=== PATIENT | male | born 1960 | race Two or more races ===

== ENCOUNTER 2016-04-02 07:30 | Inpatient (IN) | payer OTHER ==
[2016-04-01 09:16] VITALS: BMI 27.8
[~2016-04-02] VITALS: Ht 167.6 cm; Wt 80.0 kg
[~2016-04-02 07:30] MED LIST: BACITRACIN 50000 UNITS INJ ONE; CEFAZOLIN 2 GM/50 ML (PMX) 50 ML IVPB ONE
[2016-05-01 10:13] VITALS: BMI 27.6
[2016-05-02] VITALS (34 sets, daily range): BP systolic 72–126; BP diastolic 40–73; PULSE 61–83; RESP 13–22; Ht 167.6 cm; Wt 80.0 kg
[2016-05-02] MEDS ORDERED: CEFAZOLIN 1 GM INJ ONE (07:00)
[2016-05-02 08:15] LABS: BASOPHILS % 0.6 % (0.0-2.0); EOSINOPHILS # 0.2 10^3/ul (0.0-0.5); EOSINOPHILS % 3.4 % (0.0-7.0); HEMATOCRIT 43.9 % (42.0-52.0); HEMOGLOBIN 15.1 g/dl (14.0-18.0); LYMPHOCYTES # 2.5 10^3/ul (0.8-2.9); LYMPHOCYTES % 34.1 % (15.0-51.0); MEAN CORPUSCULAR HEMOGLOBIN 31.4 pg (29.0-33.0); MEAN CORPUSCULAR HGB CONC 34.3 g/dl (32.0-37.0); MEAN CORPUSCULAR VOLUME 91.5 fl (82.0-101.0); MEAN PLATELET VOLUME 8.1 fl (7.4-10.4); MONOCYTE # 0.5 10^3/ul (0.3-0.9); MONOCYTES % 6.3 % (0.0-11.0); NEUTROPHILS % 55.6 % (39.0-77.0); PLATELET COUNT 179 10^3/UL (140-440); RED CELL DISTRIBUTION WIDTH 12.9 % (11.5-14.5); UNCORRECTED WBC 7.2 10^3/ul (4.8-10.8); WHITE BLOOD COUNT 7.2 10^3/ul (4.8-10.8)
[2016-05-02 08:19] LABS: CONDITION 1
[2016-05-02] MEDS ORDERED: CEFAZOLIN 2 GM/50 ML (PMX) 50 ML IVPB SCH (08:30)
[2016-05-02 08:33] LABS: ALBUMIN 4.1 g/dl (3.3-4.9)
[2016-05-02 08:35] LABS: POTASSIUM 4.2 mmol/L (3.5-5.1)
[2016-05-02 08:36] LABS: BILIRUBIN,INDIRECT 0.6 mg/dl (0-1.1); BILIRUBIN,TOTAL 0.6 mg/dl (0.2-1.3); CREATININE 0.59 mg/dl (0.61-1.24); TOTAL PROTEIN 8.2 g/dl (6.1-8.1)
[2016-05-02 08:37] LABS: CALCIUM 8.8 mg/dl (8.4-10.2); INR 1.06; PROTIME 13.8 Sec (12.2-14.2); PT RATIO 1.1
[2016-05-02 08:38] LABS: PARTIAL THROMBOPLASTIN TIME 28.5 Sec (25.0-35.0)
[2016-05-02] MEDS ORDERED: NALOXONE (0.4 MG/ML) INJ IV PRN (09:30)
[2016-05-02] MEDS ORDERED: MAGNESIUM HYDROXIDE 30ML CUP PO PRN (09:30)
[2016-05-02] MEDS ORDERED: ONDANSETRON 4 MG INJ IV PRN ×2 (09:30→15:30)
[2016-05-02] MEDS ORDERED: ACETAMINOPHEN 325 MG TAB PO PRN (09:30)
[2016-05-02] MEDS ORDERED: CYCLOBENZAPRINE 10 MG TAB PO PRN (09:30)
[2016-05-02] MEDS ORDERED: HYDROmorphONE 0.2 MG/ML PCA IV SCH (09:30)
[2016-05-02] MEDS ORDERED: CEPASTAT LOZENGE MT PRN (09:30)
[2016-05-02] MEDS ORDERED: LORAZEPAM 2 MG INJ IV PRN (09:30)
[2016-05-02] MEDS ORDERED: HYDROmorphONE 1 MG/ML SYG IV PRN (09:30)
[2016-05-02] MEDS ORDERED: HYDROCODONE/APAP (5/325) TAB PO PRN (09:30)
[2016-05-02] MEDS ORDERED: DIPHENHYDRAMINE 50 MG INJ IV PRN (09:30)
[2016-05-02] MEDS ORDERED: PROCHLORPERAZINE 10 MG INJ IV PRN (09:30)
[2016-05-02] MEDS ORDERED: ROCURONIUM 50 MG INJ ONE ×4 (09:55→12:10)
[2016-05-02] MEDS ORDERED: LIDOCAINE 2% (SDV) 5 ML INJ ONE (09:55)
[2016-05-02] MEDS ORDERED: PROPOFOL 100 ML ONE (09:55)
[2016-05-02] MEDS ORDERED: FENTAnyl 50 MCG/ML VIAL ONE (09:57)
[2016-05-02] MEDS ORDERED: BUPIVACAINE 0.25%/EPI (SDV) 30 ML INJ ONE (09:57)
[2016-05-02] MEDS ORDERED: CA CHLORIDE 10% 10 ML SYRINGE ONE (09:57)
[2016-05-02] MEDS ORDERED: BUPIVACAINE 0.25% (MPF) 30 ML INJ ONE (09:57)
[2016-05-02] MEDS ORDERED: THROMBIN 5000 UNIT VIAL ONE ×3 (09:58→13:21)
[2016-05-02] MEDS ORDERED: HEPARIN 1000 UNITS/ML 10 ML INJ ONE (10:11)
[2016-05-02] MEDS ORDERED: GLYCOPYRROLATE 1 MG INJ ONE (10:28)
[2016-05-02] MEDS ORDERED: IOHEXOL 300MG/ML 30 ML BTL ONE (10:37)
[2016-05-02] MEDS ORDERED: HYDROmorphONE 2 MG/ML SYG ONE (10:52)
[2016-05-02] MEDS ORDERED: POLYMYXIN/BACITRACIN 1L IRRIG IRR ONE (11:22)
[2016-05-02] MEDS ORDERED: EPHEDrine SULFATE 50 MG/5 ML SYG ONE ×2 (11:39→15:15)
[2016-05-02] MEDS ORDERED: DEXAMETHASONE 4 MG/ML 1 ML INJ ONE (11:40)
[2016-05-02] MEDS ORDERED: IOHEXOL 300MG/ML 30 ML BTL INJ ONE (12:55)
[2016-05-02] MEDS ORDERED: ONDANSETRON 4 MG INJ ONE (14:29)
[2016-05-02] MEDS ORDERED: LABETALOL HCL 20MG INJ IV PRN (15:30)
[2016-05-02] MEDS ORDERED: EPHEDrine SULFATE 50 MG/5 ML SYG IV PRN (15:30)
[2016-05-02] MEDS ORDERED: FENTAnyl 50 MCG/ML VIAL IV PRN ×3 (15:30)
[2016-05-02] MEDS ORDERED: HYDROmorphONE (0.2 MG/ML) 10ML SYG IV PRN ×3 (15:30)
[2016-05-02] MEDS ORDERED: MEPERIDINE 25 MG INJ IV PRN (15:30)
--- NOTE | 2016-05-02 15:33 | RADRPT ---
PROCEDURE: Lumbar spine x-ray and fluoroscopy CLINICAL INDICATION: Lumbar spine surgical procedure TECHNIQUE: 8 intraoperative x-ray views of the lumbar spine are available for review. Site of ser vice: Inpatient COMPARISON: None available FINDINGS: 8 intraoperative images and 37.6 seconds of fluoroscopy used intraoperatively for L5-S1 anterior fix ation with a radiolucent disk spacer and posterior fixation with pedicle screws and connecting rods IMPRESSION: 8 intraoperative images and 37.6 seconds of fluoroscopy used for a L5-S1 fusion .Abebe Fan MD, Date Time Electronically viewed and signed by .Abebe Fan MD, on 05/02/2016 15:33 .B/
[2016-05-02] MEDS: CEFAZOLIN 1 GM/50 ML (PMX) 50 ML IVPB SCH (15:54)
--- NOTE | 2016-05-02 16:08 | OPR ---
DATE OF OPERATION: 05/02/2016 PREOPERATIVE DIAGNOSIS: L5-S1 degenerative disk disease, foraminal stenosis and anterolisthesis, grade I. POSTOPERATIVE DIAGNOSIS: L5-S1 degenerative disk disease, foraminal stenosis and anterolisthesis, grade I. PROCEDURE: 1. L5-S1 diskectomy. 2. L5-S1 central decompressive laminectomy. 3. Facetectomies and foraminotomies bilaterally for decompression of exiting and traversing nerve roots at L5 and S1 respectively. 4. Diskectomy done above and beyond the need for fusion for the purpose of decompression. 5. Placement of pedicle screws at L5 and S1 bilaterally measuring 5.5 x 35 mm. 6. Interbody cage measuring 60 mm placed within the interbody space with bone graft within this cage and anterior to the cage. 7. Posterolateral bone grafting in the posterolateral gutters after high-speed bur decortication. 8. 40 mm prelordotic rods placed into the screws. 9. Right L5 nerve root demonstrated injury during the procedure, nerve root exposed and difficult to assess the amount of nerve injury. Intraoperative neural monitoring including sensorimotor did demonstrate deficit compared to preoperative. 10. Use of intraoperative microscope for microdissection. 11. Use of intraoperative neural monitoring for motor and sensory to the bilateral upper and lower extremities during the entire surgical procedure. 12. Use of intraoperative microscope. 13. Use of intraoperative fluoroscopy for localization and placement of instrumentation as well as an epidurogram. 14. Epidural catheter placed for epidural pain medication including 4 mL of 0.25% Marcaine and 100 mcg of fentanyl and then the catheter removed. 15. Subcutaneous injection of Marcaine for postop analgesia. 16. Cosmetic wound closure, four inch incision. SURGEON: Luis Ocasio MD PHP SOFTWARE ENGINEER: LASHAY Jose. FINDINGS: At the start of surgical procedure it is noted that nerve root signals improved except for the L5 nerve root on the right side which demonstrated motor and sensory deficit compared to preoperative baseline. BLOOD ADMINISTRATION: None. IMPLANTS: Orthofix implants with interbody cage measuring 60 mm and four pedicle screws measuring 5.5 x 35 mm, OsteoSponge Fibergraft. ESTIMATED BLOOD LOSS: Approximately 150 mL. DRAINS: Hemovac medium and Lewis. SPECIMENS: L5-S1 disk material. COMPLICATIONS: Start at surgical procedure, it is noted that the right L5 nerve root had some deficit compared to conclusion. There appears to have been an intraoperative nerve root injury at the L5 on the right side, demonstrating some exposed nerve roots, difficult to assess the amount of motor deficit and sensory deficit until patient returns from the surgical procedure and tested postoperatively. TYPE OF ANESTHESIA: General. ANESTHESIOLOGIST: Dr. Duncan. BRIEF PREOPERATIVE HISTORY: The patient is a 55-year-old male who presented with significant symptoms of lower extremity neuroclaudication with grade I anterolisthesis at L5-S1. Failed conservative management and indicated for surgery as stated above. The patient understood the risks, benefits, and alternatives of surgical procedure and consented to surgery as stated above. This included the possibility of infection, nerve root injury, CSF leak, blood loss in addition to failure of fusion, failure of instrumentation and the need for reoperation. Patient understood the risks, benefits, and alternatives discussed with patient as well as son at bedside who helped translation. OPERATION IN DETAIL: The patient was brought to the operating room, placed under anesthesia by Dr. Duncan and given 2 grams of Ancef. The patient was then turned prone onto the Daquan frame and all bony prominences appropriately padded. Lumbar spine prepped and draped in usual sterile fashion. Two spinal needles placed for a lateral localizing film verifying the proper position of the incision line over the L5-S1 level. Patient started with the central decompressive laminectomy, removing the spinous processes of L5 to expose the thecal sac and bilateral L5 and S1 exiting and traversing nerve roots with complete facetectomies and foraminotomies bilaterally. At this portion of the procedure, it was noted that the L5 exiting nerve root on the right side demonstrated findings of exposed nerve roots. This demonstrated possibility of an injury due to possible adhesions during the surgical procedure and decompression. Assess after waking. We continue with the procedure as planned and tested nerve roots during the entire surgical procedure with intraoperative neuromonitoring. At this time, after decompression, we entered into the disk space for complete diskectomy above and beyond the need for fusion for the purpose of decompression , measured a 60 mm interbody cage and filled it with Fibergraft and placed Fibergraft as well as bone OsteoSponge into the disk space and placed the interbody cage. Next, our screws were placed to the bilateral pedicles at 35 mm x 5.5 mm and verified on AP and lateral projection and proper placement. Again, it was evaluated with neuromonitoring noting that there was deficit of the L5 nerve root on the right side in both sensory and motor compared to baseline. At the conclusion of the procedure placed Duragen and DuraSeal to seal off the L5 nerve root. Copiously irrigated and placed the 40 mm prelordotic rods across the pedicles and injected our epidural pain medication with 4 mL of 0.25 % Marcaine and 100 mcg of fentanyl and removed the catheter. The medium Hemovac was placed after copious irrigation. Bilateral posterolateral bone graft was placed in the posterolateral gutters after high- speed bur decortication. Cosmetic wound closure of the 4 inch incision. Once concluded the procedure all instrument, sponge counts and needles were correct. The patient will be taken to recovery room and taken to the room when stable. The patient will be admitted for postop pain control, physical therapy and antibiotics. All instrument, sponge counts and needles were correct at conclusion of the procedure. Despite the noted L5 nerve root injury on the right side, post-op patient examination demonstrates full motor/sensory bilaterally when comparing the L4, L5 and S1 nerve root motor and sensory dermatome distribution. EHL, ant. tib, gastrocsoleus, knee flex/ext, hip flexion all full 5/5 motor without and deficit. No radicular pain and reflexes symmetric. IMPLANTS: As stated above. Dictated By: LUIS WHIPPLE/DREW Conf#: [id number] DID#: [id number] MTDD
--- NOTE | 2016-05-02 17:46 | CONS ---
DATE OF ADMISSION: 05/02/2016 DATE OF CONSULTATION: 05/02/2016 REQUESTING PHYSICIAN: Luis Pascal MD REASON FOR CONSULTATION: Medical management. HISTORY OF PRESENT ILLNESS: This is a 55-year-old gentleman with no significant past medical histor y except significant symptoms in the lower extremities, neural claudication with grade I anterolisth esis with past medical history of low back pain and difficulty ambulating, who was seen and evaluate d by neurosurgeon as outpatient and was found to have symptoms of lower extremity neural claudicatio n with grade I anterolisthesis at L5-S1. The patient failed conservative management and was indicat ed for surgery. After discussing the mode of the treatment and discussing the risks and the benefit s of surgery, patient decided to proceed with the surgical intervention and signed the consent. The patient was admitted to [facility] and had L5-S1 diskectomy, central decompressiv e laminectomy with placement of pedicle screws at L5 and S1 bilaterally measuring 5.5 x 35 mm. The patient was initially extubated and was transferred to recovery room and medical team was consulted. At this time, patient is awake, alert, oriented. He is able to answer all my questions. The donnie ent denies any headache, dizziness, lightheadedness. No chest pain, palpitations, edema, orthopnea. No change in visual acuity, diplopia, photophobia. No numbness or tingling in his extremities or any other discomfort. PAST MEDICAL HISTORY: Low back pain. MEDICATIONS: No active prescription. ALLERGIES: NO KNOWN DRUG ALLERGIES. FAMILY HISTORY: Noncontributory. SOCIAL HISTORY: Negative for smoking, alcohol, illicit drugs. , 4 children, works in a [employer]. PAST SURGICAL HISTORY: Cholecystectomy. REVIEW OF SYSTEMS: As above per HPI, otherwise 12 review of systems has been found to be negative. PHYSICAL EXAMINATION: VITAL SIGNS: Temperature 98.5, pulse 61, respiration 19, blood pressure 126/73, oxygen 100% in room air. GENERAL APPEARANCE: The patient is lying in bed comfortably without any distress. He is awake, servando rt, oriented. He is able to answer my questions properly. EYES AND EARS, NOSE, THROAT: Conjunctivae and lids are normal. Pupils are normal. Extraocular nor mal. Hearing grossly normal. Lips and gums are normal. Oral mucosa is mildly dry. NECK: Supple. Trachea is midline. No lymphadenopathy. RESPIRATORY: Effort is normal. Clear to auscultate bilaterally. CARDIOVASCULAR: Normal S1, S2. Regular rhythm and rate. No murmur, no bruits, no edema. Peripher al pulses, radial pulses palpable. Cap refill is normal. CHEST: Normal expansion of thorax during inspiration. GASTROINTESTINAL: Abdomen is soft, nontender, not distended. Bowel sounds present. No guarding, n o rebound. GENITOURINARY: Deferred. MUSCULOSKELETAL: Upper and lower extremities within normal limits. Full range of motion upper extr emity and bilateral feet. There is a Hemovac at his lumbar region with a drain. NEUROLOGIC: Cranial nerves II through XII shows grossly intact. PSYCHIATRIC: He is awake, alert, oriented. LABORATORY WORK AND IMAGING: WBC 7.3, hemoglobin 15.1, hematocrit 43.9, platelets 179. Sodium 144, potassium 4.2, chloride 103, bicarbonate 30, BUN 14, creatinine 0.59, glucose 112. LFTs all within normal limits. ASSESSMENT AND PLAN: 1. L5-S1 degenerative disk disease with foraminal stenosis and anterolisthesis grade I. The patien t is status post L5-S1 diskectomy, central decompressive laminectomy, and placement of pedicle screw s at L5-S1 bilaterally measuring 5.5 x 35 mm. Neurosurgery on board. Continue pain medications. D eep vein thrombosis prophylaxis as per his recommendation. Physical therapy as per his recommendati on. Pain management as per neurosurgery recommendation. 2. For deep venous thrombosis prophylaxis, on sequential compression devices. We will follow neuro surgery recommendations for further deep vein thrombosis prophylaxis. 3. We will continue to monitor patient closely. Further recommendations, management, and treatment as per clinical course. Total of time was spent for evaluation of patient and consultation note 35 minutes. Dictated By: MENDOZA BLANCHARD MD PN/NTS Conf#: [id number] DID#: [id number] CC: LUIS PASCAL MD;*EndCC*
[2016-05-02] MEDS: D5W-0.45 NACL + KCL 20 MEQ 1,000 ML IV SCH (18:14)
[2016-05-02 18:28] LABS: ADD UMIC YES; URINE BILIRUBIN (Dip) 1+ (NEGATIVE); URINE BLOOD (Dip) NEGATIVE (NEGATIVE); URINE GLUCOSE (Dip) NEGATIVE (NEGATIVE); URINE KETONES (Dip) NEGATIVE (NEGATIVE); URINE LEUKOCYTE ESTERASE (Dip) NEGATIVE (NEGATIVE); URINE NITRITE (Dip) NEGATIVE (NEGATIVE); URINE TOTAL PROTEIN (Dip) 2+ (NEGATIVE); URINE UROBILINOGEN (Dip) 1.0 E.U./dL (0.1-1.0)
[2016-05-02 18:54] LABS: URINE COLOR DARK YELLOW (YELLOW)
[2016-05-02 18:59] LABS: BACTERIA,URINE FEW; ICTOTEST NEGATIVE (NEGATIVE); URINE RBCS NONE SEEN /HPF (0)
[2016-05-02 19:00] LABS: TRANSITIONAL EPI CELLS,URINE OCCASIONAL
[2016-05-02] MEDS: DOCUSATE SODIUM 100 MG CAP PO SCH (20:53)
[2016-05-03] MEDS: CEFAZOLIN 1 GM/50 ML (PMX) 50 ML IVPB SCH ×2 (00:05→08:05)
[2016-05-03 00:45] VITALS: BP 104/61; RESP 18
[2016-05-03] MEDS: D5W-0.45 NACL + KCL 20 MEQ 1,000 ML IV SCH ×2 (04:20→08:08)
[2016-05-03 05:00] VITALS: BP 118/57; PULSE 71; RESP 18
[2016-05-03] MEDS: PANTOPRAZOLE 40 MG INJ IV SCH (05:58)
[2016-05-03 06:11] LABS: HEMATOCRIT 35.4 % (42.0-52.0); HEMOGLOBIN 12.4 g/dl (14.0-18.0); LYMPHOCYTES # 1.2 10^3/ul (0.8-2.9); LYMPHOCYTES % 8.6 % (15.0-51.0); MEAN CORPUSCULAR HEMOGLOBIN 32.1 pg (29.0-33.0); MEAN CORPUSCULAR HGB CONC 35.1 g/dl (32.0-37.0); MEAN CORPUSCULAR VOLUME 91.4 fl (82.0-101.0); MEAN PLATELET VOLUME 8.6 fl (7.4-10.4); MONOCYTE # 0.5 10^3/ul (0.3-0.9); MONOCYTES % 3.2 % (0.0-11.0); NEUTROPHIL # 12.9 10^3/ul (1.6-7.5); NEUTROPHILS % 88.2 % (39.0-77.0); PLATELET COUNT 174 10^3/UL (140-440); RED BLOOD COUNT 3.87 10^6/ul (4.70-6.10); RED CELL DISTRIBUTION WIDTH 12.8 % (11.5-14.5); UNCORRECTED WBC 14.6 10^3/ul (4.8-10.8); WHITE BLOOD COUNT 14.6 10^3/ul (4.8-10.8)
[2016-05-03 06:15] LABS: POTASSIUM 4.5 mmol/L (3.5-5.1)
[2016-05-03 06:18] LABS: CALCIUM 8.3 mg/dl (8.4-10.2); CREATININE 0.62 mg/dl (0.61-1.24); MAGNESIUM 1.8 mg/dl (1.7-2.5)
[2016-05-03 06:30] LABS: CONDITION 1
--- NOTE | 2016-05-03 06:44 | PN ---
Date/Time of Note Date/Time of Note DATE: 05/03/16 TIME: 06:34 Assessment/Plan VTE Prophylaxis VTE Prophylaxis Intervention: ambulation, anti-embolic stocking, contraindicated VTE Contraindication Reason: bleeding (s/p lumbar spine surgery) Lines/Catheters IV Catheter Type (from Nrsg): Peripheral IV Urinary Cath still in place: Yes Reason Cath still needed: other (indicate) (has not ambulated yet, DC after PT) Assessment/Plan Chief Complaint/Hosp Course Patient doing well after L5-S1 posterior lumbar fusion and decompression No Headache Pain controlled well Problems: Assessment/Plan Patient doing well after L5-S1 posterior lumbar fusion and decompression Despite what appeared to possibly be a Right L5 nerve root injury, there appears to be no neuro deficit in the lower extremities, see exam above. Senosry/motor fully intact. Patient is comfortable and appears in good spirits. Pain controlled with minimal FIRST LEVELER use overnight Transition FIRST LEVELER to oral pain meds, [place], and Dilaudid for breakthrough Rigid LSO to arrive today. Soft corset okay uintil brace arrives. Hemovac to be left in, possible DC tomorrow Anticipate DC tomorrow Cancel right AFO order, patient has no evidence of foot drop. [employer] Sp. Cont'd Hospitalization Reason: hemovac drainage and pain control. PT today. Subjective 24 Hr Interval Summary Free Text/Dictation Patient doing well. Minimal use of FIRST LEVELER. Has not ambulated with PT yet. No c/o headache, n/v, or photophobia Exam/Review of Systems Vital Signs Vitals Vital Signs Date Time Temp Pulse Resp B/P Pulse Ox O2 Delivery O2 Flow Rate FiO2 05/03/16 05:00 18 05/03/16 05:00 98.5 71 118/57 97 05/02/16 17:15 Nasal Cannula 05/02/16 16:56 2.0 Intake and Output 05/02/16 05/02/16 05/03/16 15:00 23:00 07:00 Intake Total 2500 ml 1330 ml Output Total 250 ml 140 ml 1990 ml Balance 2250 ml -140 ml -660 ml Exam Additional Comments Examination of bilateral LE demonstrates no neuro deficit. Full motor and seosory in dermatomal distribution of L4, L5, and S1. Motor to EHL, ant tib, gastrocsoleus, knee flex/ext and hip flexion are all 5/5 and equal bilaterally. Light touch equal in distribution. Wound dressing CDI. Hemovac in place. Calf soft, NT, ND Hemovas draining bloody discharge Results Result Diagram: 05/03/1641905/03/16419 Results 24 hrs Laboratory Tests Test 05/02/16 08:00 05/02/16 15:15 05/03/16 04:20 Activated Partial Thromboplast Time 28.5 Alanine Aminotransferase (ALT/SGPT) 35 Albumin 4.1 Albumin/Globulin Ratio 1.00 Alkaline Phosphatase 79 Anion Gap 15 14 Aspartate Amino Transf (AST/SGOT) 27 Basophils # 0.0 0.0 Basophils % 0.6 0.0 Blood Urea Nitrogen 14 12 Calcium Level 8.8 8.3 L Carbon Dioxide Level 30 29 Chloride Level 103 101 Creatinine 0.59 L 0.62 Direct Bilirubin 0.00 Eosinophils # 0.2 0.0 Eosinophils % 3.4 0.0 Globulin 4.10 H Glucose Level 112 144 Hematocrit 43.9 35.4 L Hemoglobin 15.1 12.4 L INR International Normalized Ratio 1.06 Indirect Bilirubin 0.6 Lymphocytes # 2.5 1.2 Lymphocytes % 34.1 8.6 L Mean Corpuscular Hemoglobin 31.4 32.1 Mean Corpuscular Hemoglobin Concent 34.3 35.1 Mean Corpuscular Volume 91.5 91.4 Mean Platelet Volume 8.1 8.6 Monocytes # 0.5 0.5 Monocytes % 6.3 3.2 Neutrophils # 4.0 12.9 H Neutrophils % 55.6 88.2 H Nucleated Red Blood Cells # 0.0 0.0 Nucleated Red Blood Cells % 0.0 0.0 Platelet Count 179 174 Potassium Level 4.2 4.5 Prothrombin Time 13.8 Prothrombin Time Ratio 1.1 Red Blood Count 4.80 3.87 L Red Cell Distribution Width 12.9 12.8 Sodium Level 144 139 Total Bilirubin 0.6 Total Protein 8.2 H White Blood Count 7.2 14.6 #H Urine Bacteria FEW Urine Bilirubin 1+ H Urine Clarity CLEAR Urine Color DARK YELLOW Urine Glucose NEGATIVE Urine Hemoglobin NEGATIVE Urine Ictotest NEGATIVE Urine Ketones NEGATIVE Urine Leukocyte Esterase NEGATIVE Urine Microscopic RBC NONE SEEN Urine Microscopic WBC 0-2 Urine Nitrite NEGATIVE Urine Specific [place] 1.020 Urine Total Protein 2+ H Urine Transitional Epithelial Cells OCCASIONAL Urine Urobilinogen 1.0 E.U./dL Urine pH 8.5 Magnesium Level 1.8 Medications Medications Current Medications Potassium Chloride/Dextrose/ Sod Cl (D5-1/2ns + KCl 20 Meq) 1,000 ml @ 75 mls/ hr [id number] IV Last administered on 05/02/16 18:14; Admin Dose 75 MLS/HR; Start 05/02/16 at 15:00 Acetaminophen/ Hydrocodone Bitart ([place] (5/325)) 1 tab Q4H PRN PO PAIN LEVEL 1 -5; Start 05/02/16 at 09:30 Acetaminophen/ Hydrocodone Bitart ([place] (5/325)) 2 tab Q4H PRN PO PAIN LEVEL 6 -10; Start 05/03/16 at 10:00 Hydromorphone HCl 0.2 mg 0.2 mg Q3H PRN IV BREAKTHROUGH PAIN; Start 05/02/16 at 09:30 Cefazolin Sodium (Ancef 1 Gm/50 ml (Pmx)) 50 ml @ 100 mls/hr Q8H IVPB Last administered on 05/03/16 00:05; Admin Dose 100 MLS/HR; Start 05/02/16 at 16:00; Stop 05/03/16 at 08:29 Ondansetron HCl (Zofran Inj) 4 mg Q6H PRN IV NAUSEA AND/OR VOMITING; Start 05/02 at 09:30 Prochlorperazine (Compazine Inj) 10 mg Q6H PRN IV NAUSEA AND/OR VOMITING; Start 05/02/16 at 09:30 Docusate Sodium (Colace) 100 mg BID PO Last administered on 05/02/16 20:53; Admin Dose 100 MG; Start 05/02/16 at 21:00 Pantoprazole (Protonix Iv) 40 mg DAILY@06 IV Last administered on 05/03/16 05: 58; Admin Dose 40 MG; Start 05/03/16 at 06:00 Magnesium Hydroxide (Milk Of Mag) 30 ml HS PRN PO CONSTIPATION/DYSPEPSIA; Start 05/02/16 at 09:30 Acetaminophen (Tylenol Tab) 650 mg Q4H PRN PO WEST OR TEMP GREATER THAN 101.3F; Start 05/02/16 at 09:30 Lorazepam (Ativan) 1 mg Q6H PRN IV ANXIETY; Start 05/02/16 at 09:30 Cyclobenzaprine HCl (Flexeril) 5 mg TID PRN PO MUSCLE SPASMS; Start 05/02/16 at 09:30 Phenol (Cepastat Lozenge) 1 lozenge PRN PRN MT SORE THROAT Last administered on 05/02/16 18:55; Admin Dose 1 LOZENGE; Start 05/02/16 at 09:30 Diphenhydramine HCl (Benadryl) 25 mg Q6H PRN IV ITCHING; Start 05/02/16 at 09:30 Naloxone HCl (Narcan) 0.2 mg Q2M PRN IV RR 8 BREATHS/MIN OR LESS Last administered on 05/02/16 15:58; Admin Dose 0.2 MG; Start 05/02/16 at 09:30 Hydromorphone HCl (Dilaudid FIRST LEVELER) FIRST LEVELER to be started in PACU Q4PCA IV Last administered on 05/02/16 15:44; Admin Dose 6 MG; Start 05/02/16 at 09:30 Miscellaneous Information 1. Hold FIRST LEVELER at 1,000... FIRST LEVELER IV ; Start 05/02/16 at 09: 30 MARBELLA PASCAL MD May 03, 2016 06:43
[2016-05-03 07:23] VITALS: BP 103/55; RESP 18
[2016-05-03] MEDS: DOCUSATE SODIUM 100 MG CAP PO SCH ×2 (08:05→20:45)
[2016-05-03] MEDS ORDERED: HYDROCODONE/APAP (5/325) TAB PO ONE (09:30)
[2016-05-03 09:42] LABS: ADD UMIC NO; URINE BILIRUBIN (Dip) NEGATIVE (NEGATIVE); URINE BLOOD (Dip) NEGATIVE (NEGATIVE); URINE COLOR LT. YELLOW (YELLOW); URINE GLUCOSE (Dip) NEGATIVE (NEGATIVE); URINE KETONES (Dip) NEGATIVE (NEGATIVE); URINE LEUKOCYTE ESTERASE (Dip) NEGATIVE (NEGATIVE); URINE NITRITE (Dip) NEGATIVE (NEGATIVE); URINE TOTAL PROTEIN (Dip) NEGATIVE (NEGATIVE); URINE UROBILINOGEN (Dip) 0.2 E.U./dL (0.1-1.0)
--- NOTE | 2016-05-03 10:18 | CONS ---
Date/Time of Note Date/Time of Note DATE: 05/03/16 TIME: 10:15 Assessment/Plan Assessment/Plan Chief Complaint/Hosp Course Assessment and plan: 1. L5-S1 degenerative disk disease with foraminal stenosis and anterolisthesis grade I. patient is status post L5-S1 diskectomy, central decompressive laminectomy, and placement of pedicle screws at L5-S1 bilaterally measuring 5.5 x 35 mm. Neurosurgery on board. Continue pain medications. Deep vein thrombosis prophylaxis as per his recommendation. Start physical therapy as per his recommendation. Pain management as per neurosurgery recommendation. 2. Leukocytosis, secondary to steroid treatment during the course of surgery, patient is afebrile continue to monitor 3. For deep venous thrombosis prophylaxis, on sequential compression devices. We will follow neurosurgery recommendations for further deep vein thrombosis prophylaxis. We will continue to monitor patient closely. Further recommendations, management, and treatment as per clinical course. Problems: Consultation Date/Type/Reason Admit Date/Time May 02, 2016 at 06:51 Initial Consult Date 05/02/16 Type of Consultation: Medical management 24 HR Interval Summary Free Text/Dictation Patient is doing well Denies of any chest pain or shortness of breath Minimal low back discomfort No weakness or loss of sensory in extremities Exam/Review of Systems Vital Signs Vitals Vital Signs Date Time Temp Pulse Resp B/P Pulse Ox O2 Delivery O2 Flow Rate FiO2 05/03/16 07:23 98.2 67 18 103/55 98 05/02/16 17:15 Nasal Cannula 05/02/16 16:56 2.0 Intake and Output 05/02/16 05/02/16 05/03/16 14:59 22:59 06:59 Intake Total 2500 ml 1330 ml Output Total 250 ml 140 ml 1990 ml Balance 2250 ml -140 ml -660 ml Exam General: The patient is well-developed, Not in acute distress. HEENT: Atraumatic, normocephalic. The pupils are equal and round . Neck: Supple with full range of motion. Chest: Normal expansion of the thorax during inspiration Lungs: Clear to auscultation bilaterally Heart: Normal S1-S2, Regular rhythm and rate. Abdomen: Soft , nontender, nondistended , bowel sounds are present. Extremities: Normal to inspection, no edema no cyanosis Neurologic: Normal mental status,The patient is awake, alert and oriented . Results Result Diagram: 05/03/160 05/03/16 0420 Results 24 hrs Laboratory Tests Test 05/02/16 15:15 05/03/16 04:20 Urine Bacteria FEW Urine Bilirubin 1+ H Urine Clarity CLEAR Urine Color DARK YELLOW Urine Glucose NEGATIVE Urine Hemoglobin NEGATIVE Urine Ictotest NEGATIVE Urine Ketones NEGATIVE Urine Leukocyte Esterase NEGATIVE Urine Microscopic RBC NONE SEEN Urine Microscopic WBC 0-2 Urine Nitrite NEGATIVE Urine Specific [place] 1.020 Urine Total Protein 2+ H Urine Transitional Epithelial Cells OCCASIONAL Urine Urobilinogen 1.0 E.U./dL Urine pH 8.5 Anion Gap 14 Basophils # 0.0 Basophils % 0.0 Blood Urea Nitrogen 12 Calcium Level 8.3 L Carbon Dioxide Level 29 Chloride Level 101 Creatinine 0.62 Eosinophils # 0.0 Eosinophils % 0.0 Glucose Level 144 Hematocrit 35.4 L Hemoglobin 12.4 L Lymphocytes # 1.2 Lymphocytes % 8.6 L Magnesium Level 1.8 Mean Corpuscular Hemoglobin 32.1 Mean Corpuscular Hemoglobin Concent 35.1 Mean Corpuscular Volume 91.4 Mean Platelet Volume 8.6 Monocytes # 0.5 Monocytes % 3.2 Neutrophils # 12.9 H Neutrophils % 88.2 H Nucleated Red Blood Cells # 0.0 Nucleated Red Blood Cells % 0.0 Platelet Count 174 Potassium Level 4.5 Red Blood Count 3.87 L Red Cell Distribution Width 12.8 Sodium Level 139 White Blood Count 14.6 #H Medications Medications Current Medications Potassium Chloride/Dextrose/ Sod Cl (D5-1/2ns + KCl 20 Meq) 1,000 ml @ 75 mls/ hr [id number] IV Last administered on 05/03/16t 08:08; Admin Dose 75 MLS/HR; Start 05/02/16 at 15:00 Acetaminophen/ Hydrocodone Bitart ([place] (5/325)) 1 tab Q4H PRN PO PAIN LEVEL 1 -5; Start 05/02/16 at 09:30 Acetaminophen/ Hydrocodone Bitart ([place] (5/325)) 2 tab Q4H PRN PO PAIN LEVEL 6 -10; Start 05/03/16 at 10:00 Hydromorphone HCl (Dilaudid) 0.2 mg Q3H PRN IV BREAKTHROUGH PAIN; Start at 09:30 Ondansetron HCl (Zofran Inj) 4 mg Q6H PRN IV NAUSEA AND/OR VOMITING; Start 05/02 at 09:30 Prochlorperazine (Compazine Inj) 10 mg Q6H PRN IV NAUSEA AND/OR VOMITING; Start 05/02/16 at 09:30 Docusate Sodium (Colace) 100 mg BID PO Last administered on 05/03/16 08:05; Admin Dose 100 MG; Start 05/02/16 at 21:00 Pantoprazole (Protonix Iv) 40 mg DAILY@06 IV Last administered on 05/03/16 05: 58; Admin Dose 40 MG; Start 05/03/16 at 06:00 Magnesium Hydroxide (Milk Of Mag) 30 ml HS PRN PO CONSTIPATION/DYSPEPSIA; Start 05/02/16 at 09:30 Acetaminophen (Tylenol Tab) 650 mg Q4H PRN PO WEST OR TEMP GREATER THAN 101.3F; Start 05/02/16 at 09:30 Lorazepam (Ativan) 1 mg Q6H PRN IV ANXIETY; Start 05/02/16 at 09:30 Cyclobenzaprine HCl (Flexeril) 5 mg TID PRN PO MUSCLE SPASMS; Start 05/02/16 at 09:30 Phenol (Cepastat Lozenge) 1 lozenge PRN PRN MT SORE THROAT Last administered on 05/02/16 18:55; Admin Dose 1 LOZENGE; Start 05/02/16 at 09:30 Diphenhydramine HCl (Benadryl) 25 mg Q6H PRN IV ITCHING; Start 05/02/16 at 09:30 Naloxone HCl (Narcan) 0.2 mg Q2M PRN IV RR 8 BREATHS/MIN OR LESS Last administered on 05/02/16 15:58; Admin Dose 0.2 MG; Start 05/02/16 at 09:30 Miscellaneous Information 1. Hold CUSTOMER LOYALTY REPRESENTATIVE at 1,000... CUSTOMER LOYALTY REPRESENTATIVE IV ; Start 05/03/16 at 06: 30 MENDOZA BLANCHARD MD May 03, 2016 10:17
[2016-05-03] MEDS: HYDROCODONE/APAP (5/325) TAB PO PRN ×2 (15:26→21:22)
[2016-05-03 19:30] VITALS: BP 111/59; PULSE 72; RESP 18
[2016-05-04] MEDS: PANTOPRAZOLE 40 MG INJ IV SCH (06:02)
[2016-05-04] MEDS: HYDROCODONE/APAP (5/325) TAB PO PRN ×2 (06:09→13:14)
[2016-05-04 07:21] VITALS: BP 109/58; RESP 16
[2016-05-04] MEDS: DOCUSATE SODIUM 100 MG CAP PO SCH (08:27)
--- NOTE | 2016-05-04 11:31 | PN ---
Date/Time of Note Date/Time of Note DATE: 05/04/16 TIME: 11:27 Assessment/Plan VTE Prophylaxis VTE Prophylaxis Intervention: SCD's Lines/Catheters [facility] Saline Lock Urinary Cath still in place: No Assessment/Plan Chief Complaint/Hosp Course Assessment and plan: 1. L5-S1 degenerative disk disease with foraminal stenosis and anterolisthesis grade I. patient is status post L5-S1 diskectomy, central decompressive laminectomy, and placement of pedicle screws at L5-S1 bilaterally measuring 5.5 x 35 mm. Neurosurgery on board. Continue pain medications. Deep vein thrombosis prophylaxis as per his recommendation. Start physical therapy as per his recommendation. Pain management as per neurosurgery recommendation. 2. Leukocytosis, secondary to steroid treatment during the course of surgery, patient is afebrile continue to monitor 3. For deep venous thrombosis prophylaxis, on sequential compression devices. We will follow neurosurgery recommendations for further deep vein thrombosis prophylaxis. Patient is is medically stable for discharge with close follow up with his primary care physician and orthopedic surgeon as outpatient Problems: Subjective 24 Hr Interval Summary Free Text/Dictation Patient denies of any chest pain or shortness of breath Denies of having any back pain or lower extremity weakness Exam/Review of Systems Vital Signs Vitals Vital Signs Date Time Temp Pulse Resp B/P Pulse Ox O2 Delivery O2 Flow Rate FiO2 05/04/16 07:21 99.1 61 16 109/58 97 05/02/16 17:15 Nasal Cannula 05/02/16 16:56 2.0 Intake and Output 05/03/16 05/03/16 05/04/16 15:00 23:00 07:00 Intake Total 350 ml 800 ml 700 ml Output Total 800 ml 100 ml Balance 350 ml 0 ml 600 ml Exam General: The patient is well-developed, Not in acute distress. HEENT: Atraumatic, normocephalic. The pupils are equal and round . Neck: Supple with full range of motion. Chest: Normal expansion of the thorax during inspiration Lungs: Clear to auscultation bilaterally Heart: Normal S1-S2, Regular rhythm and rate. Abdomen: Soft , nontender, nondistended , bowel sounds are present. Extremities: Normal to inspection, no edema no cyanosis Neurologic: Normal mental status,The patient is awake, alert and oriented . Lumbar: Drain in place, surgical site is dry and clean Results Result Diagram: 05/03/160 05/03/16419 Medications Medications Current Medications Acetaminophen/ Hydrocodone Bitart ([place] (5/325)) 1 tab Q4H PRN PO PAIN LEVEL 1 -5; Start 05/02/16 at 09:30 Acetaminophen/ Hydrocodone Bitart ([place] (5/325)) 2 tab Q4H PRN PO PAIN LEVEL 6 -10 Last administered on 05/04/16 06:09; Admin Dose 2 TAB; Start 05/03/16 at 10: 00 Hydromorphone HCl (Dilaudid) 0.2 mg Q3H PRN IV BREAKTHROUGH PAIN; Start at 09:30 Ondansetron HCl (Zofran Inj) 4 mg Q6H PRN IV NAUSEA AND/OR VOMITING; Start 05/02 at 09:30 Prochlorperazine (Compazine Inj) 10 mg Q6H PRN IV NAUSEA AND/OR VOMITING; Start 05/02/16 at 09:30 Docusate Sodium (Colace) 100 mg BID PO Last administered on 05/04/16 08:27; Admin Dose 100 MG; Start 05/02/16 at 21:00 Pantoprazole (Protonix Iv) 40 mg DAILY@06 IV Last administered on 05/04/16 06: 02; Admin Dose 40 MG; Start 05/03/16 at 06:00 Magnesium Hydroxide (Milk Of Mag) 30 ml HS PRN PO CONSTIPATION/DYSPEPSIA; Start 05/02/16 at 09:30 Acetaminophen (Tylenol Tab) 650 mg Q4H PRN PO WEST OR TEMP GREATER THAN 101.3F; Start 05/02/16 at 09:30 Lorazepam (Ativan) 1 mg Q6H PRN IV ANXIETY; Start 05/02/16 at 09:30 Cyclobenzaprine HCl (Flexeril) 5 mg TID PRN PO MUSCLE SPASMS; Start 05/02/16 at 09:30 Phenol (Cepastat Lozenge) 1 lozenge PRN PRN MT SORE THROAT Last administered on 05/02/16 18:55; Admin Dose 1 LOZENGE; Start 05/02/16 at 09:30 Diphenhydramine HCl (Benadryl) 25 mg Q6H PRN IV ITCHING; Start 05/02/16 at 09:30 Naloxone HCl (Narcan) 0.2 mg Q2M PRN IV RR 8 BREATHS/MIN OR LESS Last administered on 05/02/16t 15:58; Admin Dose 0.2 MG; Start 05/02/16 at 09:30 Miscellaneous Information 1. Hold HEALTHCARE REPRESENTATIVE at 1,000... HEALTHCARE REPRESENTATIVE IV ; Start 05/03/16 at 06: 30 MENDOZA BLANCHARD MD May 04, 2016 11:31
--- NOTE | 2016-05-04 12:07 | PDOCDIS ---
Discharge Instructions CONDITION Patient Condition: Good HOME CARE INSTRUCTIONS: Diet Instructions: Regular ACTIVITY: Bathing Restrictions: ShowerActivity Restrictions Comment: no bending, lifting , twisting. no lifting greater than 10 pounds. may teodoro FOLLOW UP/APPOINTMENTS Appointments call tomorrow to schedule appt in 7-10days MARBELLA PASCAL MD May 04, 2016 12:07
--- NOTE | 2016-05-04 12:08 | PDOCDIS ---
Discharge Instructions DIAGNOSIS Discharge Diagnosis: s/p L5-S1 fusion CONDITION Patient Condition: Good HOME CARE INSTRUCTIONS: Diet Instructions: Regular ACTIVITY: Bathing Restrictions: ShowerActivity Restrictions Comment: no bending, lifting , twisting. no lifting greater than 10 pounds. august teodoro FOLLOW UP/APPOINTMENTS Appointments call for MARBELLA Banegas MD May 04, 2016 12:08
--- NOTE | 2016-05-04 12:25 | PN ---
Date/Time of Note Date/Time of Note DATE: 05/04/16 TIME: 12:24 Assessment/Plan VTE Prophylaxis VTE Prophylaxis Intervention: ambulation Lines/Catheters IV Catheter Type (from Nrsg): Saline Lock Urinary Cath still in place: No Assessment/Plan Chief Complaint/Hosp Course Patient doing well after L5-S1 posterior lumbar fusion and decompression No Headache Pain controlled well Problems: Assessment/Plan DC home Sensory/motor intact instruction and Rx in chartr Exam/Review of Systems Vital Signs Vitals Vital Signs Date Time Temp Pulse Resp B/P Pulse Ox O2 Delivery O2 Flow Rate FiO2 05/04/16 07:21 99.1 61 16 109/58 97 05/02/16 17:15 Nasal Cannula 05/02/16 16:56 2.0 Intake and Output 05/03/16 05/03/16 05/04/16 15:00 23:00 07:00 Intake Total 350 ml 800 ml 700 ml Output Total 800 ml 100 ml Balance 350 ml 0 ml 600 ml Results Result Diagram: 05/03/16 0420 05/03/16 0420 Medications Medications Current Medications Acetaminophen/ Hydrocodone Bitart ([place] (5/325)) 2 tab Q4H PRN PO PAIN LEVEL 6 -10 Last administered on 05/04/16t 06:09; Admin Dose 2 TAB; Start 05/03/16 at 10: 00 Acetaminophen (Tylenol Tab) 650 mg Q4H PRN PO WEST OR TEMP GREATER THAN 101.3F; Start 05/02/16 at 09:30 Miscellaneous Information 1. Hold BAG END SEWER at 1,000... BAG END SEWER IV ; Start 05/03/16 at 06: 30 MARBELLA PASCAL MD May 04, 2016 12:25
--- NOTE | 2016-05-04 12:29 | DS ---
Date/Time of Note Date/Time of Note DATE: 05/04/16 TIME: 12:27 Discharge Summary Admission/Discharge Info Admit Date/Time May 02, 2016 at 06:51 Discharge Date/Time 05/04/2016 Final Diagnosis s/p L5-S1 fusion Patient Condition: Good Consults hospitalist Procedures L5-S1 post. lumbar fusion with implants Hx of Present Illness Did well. No evidence of sensory or motor loss post op tolerated PO pain meds well Discussed intra-op findings of possible nerve injury with patient and family. Howver, exam demonstrated normal lower extremity function with no evidence of deficit. Hospital Course Assessment and plan: 1. L5-S1 degenerative disk disease with foraminal stenosis and anterolisthesis grade I. patient is status post L5-S1 diskectomy, central decompressive laminectomy, and placement of pedicle screws at L5-S1 bilaterally measuring 5.5 x 35 mm. Neurosurgery on board. Continue pain medications. Deep vein thrombosis prophylaxis as per his recommendation. Start physical therapy as per his recommendation. Pain management as per neurosurgery recommendation. 2. Leukocytosis, secondary to steroid treatment during the course of surgery, patient is afebrile continue to monitor 3. For deep venous thrombosis prophylaxis, on sequential compression devices. We will follow neurosurgery recommendations for further deep vein thrombosis prophylaxis. Patient is is medically stable for discharge with close follow up with his primary care physician and orthopedic surgeon as outpatient Home Meds No Active Prescriptions or Reported Meds Follow-up Plan call office for appt in 7-10days Pending Labs none MARBELLA PASCAL MD May 04, 2016 12:29
== END 2016-05-04 13:00 | disposition home or self-care (01) | DRG 460 ==
LOC: REC 05-02 06:51 → MS1 05-02 17:10
PROVIDERS: ADMIT Orthopaedic Surgery Orthopaedic Surgery of the Spine; ATTEND Orthopaedic Surgery Orthopaedic Surgery of the Spine
PROC: 0ST40ZZ Resection of Lumbosacral Disc, Open Approach (ICD-10-PCS; 2016-05-02)
PROC: 0SG30A1 (ICD-10-PCS; principal; 2016-05-02 09:30)
DX: M51.37 Other intervertebral disc degeneration, lumbosacral region (principal); D72.829 Elevated white blood cell count, unspecified; M48.07 Spinal stenosis, lumbosacral region; M43.17 Spondylolisthesis, lumbosacral region; T38.0X5A Adverse effect of glucocorticoids and synthetic analogues, initial encounter; Y92.238 Other place in hospital as the place of occurrence of the external cause
CPT/HCPCS: 72114; 80048; 80053; 81001; 81003; 83735; 85025; 85610; 85730; 86850; 86900; 86901; 86920; 86999; 87086; 88304; 97116; 97530; C1713; C9113; J0690; J1100; J1170; J1644; J2310; J2405; J3010; J3480; L0639; Q9967; V2790